=== PATIENT | female | born 1945 | race Caucasian/White ===

== ENCOUNTER 2017-01-30 14:42 | Observation (INO) ==
--- NOTE | 2017-01-30 17:29 | Emergency Department Note ---
Disposition Clinical Impression: Tremor Depression Qualifiers: Depression Type: unspecified Qualified Code(s): F32.9 - Major depressive disorder, single episode, unspecified Disposition: Admitted As Inpatient Condition: Fair Referrals: NONE,PCP [Primary Care Provider] - Forms: ED Satisfaction Letter Time of Disposition: 19:44 General Adult HPI - General Chief complaint: ED Psychiatric Symptoms Stated complaint: depressed, anxitey Time Seen by Provider: 01/30/17 17:20 Source: patient Mode of arrival: ambulatory Limitations: no limitations Nursing Notes Reviewed: Yes Vital Signs Reviewed: Yes - History of Present Illness HPI Narrative: 71-year-old with history of depression being treated with depression medications who comes in with stating that the medications are not working. Patient also has seen neurology and apparently they feel that she may have Parkinson's. The patient does have a tremor that is gotten worse. However the patient states she's never had been told that there is an absolute that she has Parkinson's. Pt Subjective Complaint: Tremor with worsening depression. Onset (ago): day(s) Pain Scale: 0 - Related Data Home Medications Medication Instructions Recorded Confirmed Carbidopa/Levodopa 25/100 [Sinemet 1 each PO 0800,1200,1600 01/30/17 01/30/17 25/100] Rosuvastatin [Crestor] 20 mg PO HS 01/30/17 01/30/17 Vortioxetine Hydrobromide 10 mg PO DAILY 01/30/17 01/30/17 [Trintellix] diazePAM [Valium] 5 mg PO QID 01/30/17 01/30/17 Allergies Allergy/AdvReac Type Severity Reaction Status Date / Time No Known Allergies Allergy Verified 01/30/17 19:54 All systems ED: reviewed and negative except as stated. Constitutional: Denies: fever, chills, weakness, weight change Eyes: Denies: eye pain, eye discharge, vision change ENT ED: Denies: ear pain, throat pain, dental pain, hearing loss, epistaxis, congestion, dysphagia Cardiovascular: Denies: chest pain, palpitations, dyspnea on exertion, edema, syncope Respiratory: Denies: cough, dyspnea, wheezes, hemoptysis, stridor Gastrointestinal: Denies: abdominal pain, nausea, vomiting, diarrhea, constipation, hematemesis, melena, hematochezia Genitourinary: Denies: dysuria, frequency, hematuria, discharge Musculoskeletal: Denies: back pain, neck pain, arthralgia, myalgia Integumentary: Denies: rash, abrasion, lesions Neurological: Reports: other (Worsening tremor). Denies: headache, weakness, numbness, paresthesias, confusion, abnormal gait, vertigo Psychiatric: Reports: anxiety, depression. Denies: suicidal thoughts, homicidal thoughts, auditory hallucinations, visual hallucinations Endocrine: Denies: fatigue Hematological/Lymphatic: Denies: easy bleeding, easy bruising Allergic/Immunologic: Denies: facial swelling, urticaria Past Medical History - Past Medical History Medical history: Reports: no medical history Psychiatric history: Reports: anxiety, depression - Social History Smoking Status: Never smoker Smokeless Tobacco Status: No Alcohol use: Reports: none Drug use: Reports: none Physical Exam - General Limitations: no limitations General appearance: alert, in no apparent distress - Head Head exam: atraumatic, normocephalic, normal inspection - Eye Eye exam: Present: normal appearance, PERRL, EOMI - ENT ENT exam: normal exam, normal oropharynx, mucous membranes moist - Neck Neck exam: Present: normal inspection, full ROM, trachea midline - Chest Chest inspection: Present: normal inspection, symmetric chest wall rise - Respiratory Respiratory exam: Present: normal lung sounds bilaterally - Cardiovascular Cardiovascular exam: Present: regular rate, normal rhythm, normal heart sounds - Abdominal Exam Abdominal exam: Present: soft, Non-Tender. Absent: tenderness, distention, guarding, rebound, rigidity - Extremities Exam Extremities exam: Present: normal inspection, full ROM. Absent: tenderness, pedal edema - Expanded Lower Extremity Exam Neurovascular/Tendon exam: Present: other (6 to cycle tremor present. Seems to be worse with intention.) Gait: not tested/not observed - Back Exam Back exam: Present: normal inspection, full ROM. Absent: tenderness - Neurological Exam Neurological exam: Present: alert, oriented X3 - Psychiatric Psychiatric exam: Present: depressed - Skin Skin exam: Present: warm, dry, intact, normal color Course - Reevaluation(s) Reevaluation #1: 71-year-old female with a history of depression is been on antidepressants states that depression is getting worse although she is not suicidal. She also has a tremor of is worsened to the point where there is difficulty with her eating and ambulating. Patient has been evaluated by both psychiatry and neurology and the question is whether this is medication induced versus a primary diagnosis of Parkinson's. Worsen significantly we'll go ahead and admit. Time: 19:45 - Consultations Consultation #1: Discussed with Dr. Sanchez, med effect vs Parkinsons. Time: 19:36 Consultation #2: Discussed with Dr. Gutiérrez, will see in consult. Time: 19:44 Consultation #3: Discussed with Dr. Santos, admit Time: 20:15 Vital Signs Temperature 98.8 F 01/30/17 14:57 Pulse Rate 95 01/30/17 14:57 Respiratory Rate 18 01/30/17 14:57 Blood Pressure 135/84 01/30/17 14:57 O2 Sat by Pulse Oximetry 95 01/30/17 14:57 Temperature 98.8 F 01/30/17 14:57 Pulse Rate 95 01/30/17 14:57 Respiratory Rate 18 01/30/17 14:57 Blood Pressure 135/84 01/30/17 14:57 O2 Sat by Pulse Oximetry 95 01/30/17 14:57 Oxygen Delivery Oxygen Delivery Room Air Medical Decision Making - Lab Data Lab results reviewed: Yes I reviewed the patient's lab results. Result diagrams: 01/30/17 18:38 01/30/17 17:45 Lab Results 01/30/17 01/30/17 01/30/17 Range/Units 17:45 17:45 18:11 WBC (4.3-11.1) K/mcL RBC (3.82-4.97) M/mcL Hgb (11.5-15.4) g/dL Hct (35.3-44.9) % MCV (83.0-100.0) fL MCH (28.0-33.3) pg MCHC (31.6-35.5) g/dL RDW (11.5-14.5) % Plt Count (140-400) K/mcL MPV (9.4-12.4) fL Immature Gran % (0-4) % Seg Neutrophils % % Lymphocytes % % Monocytes % % Eosinophils % % Basophils % % Neutrophils # (1.6-8.9) K/mcL Lymphocytes # (0.6-4.6) K/mcL Monocytes # (0.0-1.3) K/mcL Eosinophils # (0.0-0.6) K/mcL Basophils # (0.0-0.2) K/mcL Immature Plt Fraction (1.1-6.1) % Sodium 139 (136-145) mEq/L Potassium 4.2 (3.5-4.5) mEq/L Chloride 105 (98-109) mEq/L Carbon Dioxide 22 (19-29) mEq/L BUN 9 (7-20) mg/dL Creatinine 1.35 H (0.57-1.11) mg/dL Est GFR ( Amer) 47 L (> 60) Est GFR (Non-Af Amer) 38 L (> 60) BUN/Creatinine Ratio 7 (6-26) Glucose 115 H (70-99) mg/dL Calculated Osmolality 288 (280-300) Calcium 9.9 (8.6-10.8) mg/dL Total Bilirubin 0.9 (0.2-1.2) mg/dL Direct Bilirubin 0.4 (0.0-0.5) mg/dL Indirect Bilirubin 0.5 (0.0-1.2) mg/dL AST 36 H (5-34) Units/L ALT 8 (0-55) Units/L Alkaline Phosphatase 94 (38-126) Units/L Serum Total Protein 7.7 (6.0-8.3) g/dL Albumin 4.4 (3.5-5.0) g/dL Globulin 3.3 (2.4-3.5) g/dL Albumin/Globulin Ratio 1.3 (1.1-2.2) TSH 1.197 (0.350-4.840) mcIU/mL Urine Color Yellow (Yellow) Urine Clarity Clear (Clear) Urine pH 6.0 (5.0-8.0) pH Units Ur Specific [place] 1.008 L (1.010-1.025) Urine Protein Negative (Neg-Trace) mg/dL Urine Glucose (UA) Normal (Normal) mg/dL Urine Ketones Trace H (Negative) mg/dL Urine Blood Negative (Negative) Urine Nitrite Negative (Negative) Urine Bilirubin Negative (Negative) Urine Urobilinogen Normal (Normal) mg/dL Ur Leukocyte Esterase Moderate H (Negative) Urine Microscopic RBC 0-3 (0-3) per hpf Urine Microscopic WBC 5-15 H (0-3) per hpf Ur Squamous Epith Cells Many H (None-Few) per lpf Urine Bacteria None Seen (None-Few) per hpf Hyaline Casts None Seen (None-Few) per lpf Salicylates < 5.0 L (15-30) mg/dL Urine Opiates Screen (Dhhelo=852) ng/mL Acetaminophen < 1.0 L (10-30) mcg/mL Ur Barbiturates Screen (Jwkybu=473) ng/mL Ur Phencyclidine Scrn (Cutoff=25) ng/mL Ur Amphetamines Screen (Pcwuvl=8918) ng/mL U Benzodiazepines Scrn (Hksmly=576) ng/mL Urine Cocaine Screen (Cutoff= 300) ng/mL U Marijuana (THC) Screen (Cutoff = 50) ng/mL Ethyl Alcohol < 10 (0-10) mg/dL 01/30/17 01/30/17 Range/Units 18:11 18:38 WBC 7.3 (4.3-11.1) K/mcL RBC 4.87 (3.82-4.97) M/mcL Hgb 15.0 (11.5-15.4) g/dL Hct 43.1 (35.3-44.9) % MCV 88.5 (83.0-100.0) fL MCH 30.8 (28.0-33.3) pg MCHC 34.8 (31.6-35.5) g/dL RDW 12.5 (11.5-14.5) % Plt Count 192 (140-400) K/mcL MPV 11.2 (9.4-12.4) fL Immature Gran % 0.3 (0-4) % Seg Neutrophils % 69.5 % Lymphocytes % 21.8 % Monocytes % 7.9 % Eosinophils % 0.1 % Basophils % 0.4 % Neutrophils # 5.1 (1.6-8.9) K/mcL Lymphocytes # 1.6 (0.6-4.6) K/mcL Monocytes # 0.6 (0.0-1.3) K/mcL Eosinophils # 0.0 (0.0-0.6) K/mcL Basophils # 0.0 (0.0-0.2) K/mcL Immature Plt Fraction 7.2 H (1.1-6.1) % Sodium (136-145) mEq/L Potassium (3.5-4.5) mEq/L Chloride (98-109) mEq/L Carbon Dioxide (19-29) mEq/L BUN (7-20) mg/dL Creatinine (0.57-1.11) mg/dL Est GFR ( Amer) (> 60) Est GFR (Non-Af Amer) (> 60) BUN/Creatinine Ratio (6-26) Glucose (70-99) mg/dL Calculated Osmolality (280-300) Calcium (8.6-10.8) mg/dL Total Bilirubin (0.2-1.2) mg/dL Direct Bilirubin (0.0-0.5) mg/dL Indirect Bilirubin (0.0-1.2) mg/dL AST (5-34) Units/L ALT (0-55) Units/L Alkaline Phosphatase (38-126) Units/L Serum Total Protein (6.0-8.3) g/dL Albumin (3.5-5.0) g/dL Globulin (2.4-3.5) g/dL Albumin/Globulin Ratio (1.1-2.2) TSH (0.350-4.840) mcIU/mL Urine Color (Yellow) Urine Clarity (Clear) Urine pH (5.0-8.0) pH Units Ur Specific [place] (1.010-1.025) Urine Protein (Neg-Trace) mg/dL Urine Glucose (UA) (Normal) mg/dL Urine Ketones (Negative) mg/dL Urine Blood (Negative) Urine Nitrite (Negative) Urine Bilirubin (Negative) Urine Urobilinogen (Normal) mg/dL Ur Leukocyte Esterase (Negative) Urine Microscopic RBC (0-3) per hpf Urine Microscopic WBC (0-3) per hpf Ur Squamous Epith Cells (None-Few) per lpf Urine Bacteria (None-Few) per hpf Hyaline Casts (None-Few) per lpf Salicylates (15-30) mg/dL Urine Opiates Screen Negative (Smdoaw=530) ng/mL Acetaminophen (10-30) mcg/mL Ur Barbiturates Screen Negative (Umrbkh=903) ng/mL Ur Phencyclidine Scrn Negative (Cutoff=25) ng/mL Ur Amphetamines Screen Negative (Zpbnsk=0772) ng/mL U Benzodiazepines Scrn Positive H (Euvlzy=477) ng/mL Urine Cocaine Screen Negative (Cutoff= 300) ng/mL U Marijuana (THC) Screen Negative (Cutoff = 50) ng/mL Ethyl Alcohol (0-10) mg/dL - Radiology Data Radiology results reviewed: Yes I reviewed the patient's radiology results. Chest X-Ray 01/30/17 17:31 IMPRESSION: No radiographic evidence of acute cardiopulmonary disease. Left basal atelectasis and/or scarring. D/ / Elliott Smallwood MD / Elliott Smallwood MD Interpreting Provider: Elliott Smallwood MD Head CT 01/30/17 17:31 IMPRESSION: No acute intracranial abnormality. Mild parenchymal volume loss. Mild chronic microvascular disease. D/ / Luis Miguel Garza MD / Luis Miguel Garza MD Interpreting Provider: Luis Miguel Garza MD - EKG Data EKG #1 EKG attestation: Yes I reviewed and interpreted this EKG. EKG shows normal: sinus rhythm Rate: normal Rhythm: NSR Interpretation: no acute changes
[2017-01-30 18:15] LABS: BUN/Creatinine Ratio 7 (6-26); Blood Urea Nitrogen 9 mg/dL (7-20); Calcium 9.9 mg/dL (8.6-10.8); Carbon Dioxide 22 mEq/L (19-29); Chloride 105 mEq/L (98-109); Glucose 115 mg/dL (70-99); Osmolality,Calculated 288 (280-300); Potassium 4.2 mEq/L (3.5-4.5); Sodium 139 mEq/L (136-145); eGFR For African Americans 47 (> 60); eGFR For Non-African Americans 38 (> 60)
[2017-01-30 18:16] LABS: Acetaminophen < 1.0 mcg/mL (10-30); Ethanol < 10 mg/dL (0-10); Salicylate < 5.0 mg/dL (15-30)
[2017-01-30 18:17] LABS: Albumin 4.4 g/dL (3.5-5.0); Albumin/Globulin Ratio 1.3 (1.1-2.2); Bilirubin,Direct 0.4 mg/dL (0.0-0.5); Bilirubin,Indirect 0.5 mg/dL (0.0-1.2); Bilirubin,Total 0.9 mg/dL (0.2-1.2); Globulin 3.3 g/dL (2.4-3.5); Total Protein 7.7 g/dL (6.0-8.3)
[2017-01-30 18:38] LABS: Thyroid Stimulating Hormone 1.197 mcIU/mL (0.350-4.840)
[2017-01-30 18:39] LABS: Bilirubin,Urine Negative (Negative); Blood,Urine Negative (Negative); Clarity,Urine Clear (Clear); Color,Urine Yellow (Yellow); Glucose,Urine (UA) Normal (Normal); Ketones,Urine Trace mg/dL (Negative); Leukocyte Esterase,Urine Moderate (Negative); Nitrite,Urine Negative (Negative); Protein,Urine Negative (Neg-Trace); Specific Gravity,Urine 1.008 (1.010-1.025); Urobilinogen,Urine Normal (Normal)
[2017-01-30 18:41] LABS: Bacteria,Urine None Seen per hpf (None-Few); Hyaline Casts,Urine None Seen per lpf (None-Few); RBC,Urine 0-3 per hpf (0-3); Squamous Epithelial Cell,Urine Many per lpf (None-Few)
[2017-01-30 18:44] LABS: Amphetamine Screen,Urine Negative ng/mL (Cutoff=1000); Barbiturate Screen,Urine Negative ng/mL (Cutoff=200); Benzodiazepines Screen,Urine Positive ng/mL (Cutoff=200); Cannabinoid Screen,Urine Negative ng/mL (Cutoff = 50); Cocaine Screen,Urine Negative ng/mL (Cutoff= 300); Opiate Screen,Urine Negative ng/mL (Cutoff=300); Phencyclidine Screen,Urine Negative ng/mL (Cutoff=25)
[2017-01-30 19:02] LABS: Basophils % 0.4 %; Eosinophils % 0.1 %; Hematocrit 43.1 % (35.3-44.9); Immature Granulocytes % 0.3 % (0-4); Immature Platelets 7.2 % (1.1-6.1); Lymphocytes # 1.6 K/mcL (0.6-4.6); Lymphocytes % 21.8 %; Mean Corpuscular HGB Conc 34.8 g/dL (31.6-35.5); Mean Corpuscular Hemoglobin 30.8 pg (28.0-33.3); Mean Corpuscular Volume 88.5 fL (83.0-100.0); Mean Platelet Volume 11.2 fL (9.4-12.4); Monocytes # 0.6 K/mcL (0.0-1.3); Monocytes % 7.9 %; Neutrophils # 5.1 K/mcL (1.6-8.9); Platelet Count 192 K/mcL (140-400); Red Blood Count 4.87 M/mcL (3.82-4.97); Red Cell Distribution Width 12.5 % (11.5-14.5); Segmented Neutrophils % 69.5 %
[2017-01-30] MEDS ORDERED: *HR* LORazepam 1 MG TABLET PO ONE (23:04)
--- NOTE | 2017-01-31 02:43 | Internal Med History&Physical ---
Date of Encounter: 01/31/17 Time of Encounter: 02:39 Assessment and Plan (1) Tremor Current visit: Yes Status: Acute Suspected the patient would benefit from starting in anticholinergic medication. Will consult neurology. Check thyroid functions. Questionable UTI she has pus cells in urine however simple is also contaminated. Will check urine culture. No otherwise evident infectious etiology Internal Medicine - H&P: HPI Chief complaint: tremors History of present illness: Ms. Johnson is a 71 year old female with history of depression, CKD stage 3 and parkinsonism for which she was started approximately 3 weeks ago on siinemet and recently on Valium presents to the emergency room today with main complain of increased tremors. Patient has not noticed improvement with Parkinson's medications that she is on. She was started about 5 days ago on Valium to help improve the tremors however she has not noticed any improvement. She denies any focal weakness. She denies any fever chills cough expectoration. No otherwise new medications. She is compliant with her Parkinson's medications. She does not take any stimulant medications, inhalers or nebulizer treatments. Past Med Surg Social Fam HX - Past Medical History Medical history: no medical history Psychiatric history: anxiety, depression - Social History Smoking Status: Never smoker Smokeless Tobacco Status: No Alcohol use: none Drug use: none - Family History Mother Living Status: Cause of : in child Internal Medicine - H&P: Meds Carbidopa/Levodopa 25/100 [Sinemet 25/100] 1 each PO 0800,1200,1600 01/30/17 [ History] Rosuvastatin [Crestor] 20 mg PO HS 01/30/17 [History] Vortioxetine Hydrobromide [Trintellix] 10 mg PO DAILY 01/30/17 [History] diazePAM [Valium] 5 mg PO QID 01/30/17 [History] 3 Allergy/AdvReac Type Severity Reaction Status Date / Time No Known Allergies Allergy Verified 01/30/17 19:54 All Systems PM: A 10-system review of systems was performed and is negative for pertinent findings except as documented above in the HPI. Review of systems: 10 point review of systems is negative except for HPI - Constitutional Vitals: Temp Pulse Resp BP Pulse Ox 97.9 F 77 16 175/89 93 01/30/17 23:29 01/30/17 23:29 01/30/17 23:29 01/30/17 23:29 01/30/17 23:29 Exam: Gen.: patient is alert oriented times 3 not in distress. Cardiac: normal S1 S2 no additional sounds or murmurs chest: fair air entry. no active wheezing. No crackles or bronchial breathing. abdomen: soft nontender nondistended normal bowel sounds neuro: no focal deficit. generalized tremors. Internal Med - H&P Results - Labs CBC & Chem 7: 01/30/17 18:38 01/30/17 17:45
[2017-01-31] MEDS ORDERED: 0.9 % Sodium Chloride 1,000 ML IVC SCH (02:45)
[2017-01-31 05:13] LABS: Calcium 9.5 mg/dL (8.6-10.8); Magnesium 1.9 mg/dL (1.6-2.6); Potassium 3.8 mEq/L (3.5-4.5)
[2017-01-31 05:37] LABS: Thyroid Stimulating Hormone 1.914 mcIU/mL (0.350-4.840)
[2017-01-31] MEDS ORDERED: *HR* Heparin 5,000 UNIT/ML VIAL SQ SCH (06:00)
[2017-01-31] MEDS: diazePAM 5 MG TABLET PO SCH ×2 (08:19→12:45)
[2017-01-31] MEDS: Carbidopa/Levodopa 25/100 TABLET PO SCH ×2 (08:21→12:45)
[2017-01-31] MEDS ORDERED: Famotidine 20 MG TABLET PO SCH (09:00)
--- NOTE | 2017-01-31 09:19 | Event Note ---
Date of Encounter: 01/31/17
--- NOTE | 2017-01-31 09:58 | Neurology - Consult Note ---
<Russell Moreno - Last Filed: 01/31/17 10:14> Date of Encounter: 01/31/17 Time of Encounter: 09:15 Assessment and Plan (1) Tremor Current Visit: Yes Status: Acute Patient has history of drug-induced parkinsonism is currently under the care of Dr. Gutiérrez. She had been taking Sinemet previously and her dosage had been increased at her last appointment with Dr. Gutiérrez on 01/10/17. She reports he has had no improvement in her symptoms since this time. She reports now she has had increased depression and episodes of worsening tremor for the past 7-10 days. No significant localizing abnormality seen in neurologic examination. No rigiditiy noted in physical exam. No abnormalities seen in imaging. History of Present Illness Chief complaint: Increased tremors and depression HPI: Ms. Johnson is a 71 year old female with past medical history of depression, anxiety, hypertension, chronic kidney disease, drug-induced parkinsonism, and remote history of melanoma presents to [place] yesterday due to worsening of depression and tremors. At baseline patient has a fine, head/neck tremor with mild involvement of bilateral hands. She is seen by Dr. Gutiérrez as an outpatient to help address her continued tremors. She last saw Dr. Gutiérrez on 01/10/17 and her dosage of Sinemet was increased at that time. She reports that the last 7- 10 days she has been having increased depression and "heavy shaking." One is about the increased tremor since she has been having, she describes them as being brief episodes in which her tremors worsens markedly. She states involves her head and her arms typically states it limits her function certain that time, including her ability to eat or walk. She states at baseline he does not have problems with his functions. Past Med Surg Social Fam HX - Past Medical History Medical history: no medical history Psychiatric history: anxiety, depression - Social History Smoking Status: Never smoker Smokeless Tobacco Status: No Alcohol use: none Drug use: none - Family History Mother Living Status: Cause of : in child Medications and Allergies Carbidopa/Levodopa 25/100 [Sinemet 25/100] 1 each PO 0800,1200,1600 01/30/17 [ History] Rosuvastatin [Crestor] 20 mg PO HS 01/30/17 [History] diazePAM [Valium] 5 mg PO QID 01/30/17 [History] Ciprofloxacin [Cipro] 500 mg PO BID #8 tablet 01/31/17 [Rx] Vortioxetine Hydrobromide [Trintellix] 20 mg PO DAILY 30 Days tablet 01/31/17 [ Rx] 3 Allergy/AdvReac Type Severity Reaction Status Date / Time No Known Allergies Allergy Verified 01/30/17 19:54 - Constitutional Constitutional ROS IM: no chills, no fever(s), no headache(s), no weakness - Nose, Mouth, Throat Nose, mouth and throat: no dizziness, no neck pain - Cardiovascular Cardiovascular ROS IM: no chest pain, no palpitations - Respiratory Respiratory IM: no cough, no dyspnea - Gastrointestinal Gastrointestinal: no abdominal pain Physical Examination - Vital Signs Vital Signs: Initial Vital Signs Temp Pulse Resp BP Pulse Ox 98.8 F 95 18 135/84 95 01/30/17 14:57 01/30/17 14:57 01/30/17 14:57 01/30/17 14:57 01/30/17 14:57 - Exam Exam: General: Cooperative, pleasant, no acute distress, alert and oriented 3, answers questions appropriately, motion slow HEENT: Normocephalic, atraumatic, neck supple, trachea midline, Conjunctiva pink , sclera anicteric, EOMI, PERRL, oral mucosa moist, no orophargeal erythema or exudates Respiratory: No accessory muscle usage, clear to auscultation bilaterally, no wheezes/rhonchi/rales appreciated Cardiovascular: Regular rate and rhythm, S1 and S2 present, no murmurs/rubs/ gallops/clicks appreciated Extremities: No calf tenderness, noncyanotic, mild non-pitted pedal edema appreciated, warm, lower extremity pulses palpable and symmetrical Neurological: Alert and oriented 3, no facial droop, no focal deficits, flat affect, cranial nerves II through XII grossly intact bilaterally, rapid alternating movements smooth with slightly slow herrera, finger to nose smooth and accurate, sensation to gross touch intact in upper and lower extremities bilaterally, strength 5/5 in upper and lower extremities bilaterally, DTRs 1/4 in Achilles, patellar, brachioradialis bilaterally, resting head and neck tremor with very slight hand tremor bilaterally, no rigidity on exam Results - Laboratory Findings CBC and BMP: 01/30/17 18:38 01/31/17 04:12 Abnormal lab findings: Abnormal lab results Immature Plt Fraction 7.2 % (1.1-6.1) H 01/30/17 18:38 Creatinine 1.29 mg/dL (0.57-1.11) H 01/31/17 04:12 Est GFR ( Amer) 49 (> 60) L 01/31/17 04:12 Est GFR (Non-Af Amer) 41 (> 60) L 01/31/17 04:12 Glucose 112 mg/dL (70-99) H 01/31/17 04:12 AST 36 Units/L (5-34) H 01/30/17 17:45 Ur Specific [place] 1.008 (1.010-1.025) L 01/30/17 18:11 Urine Ketones Trace mg/dL (Negative) H 01/30/17 18:11 Ur Leukocyte Esterase Moderate (Negative) H 01/30/17 18:11 Urine Microscopic WBC 5-15 per hpf (0-3) H 01/30/17 18:11 Ur Squamous Epith Cells Many per lpf (None-Few) H 01/30/17 18:11 Salicylates < 5.0 mg/dL (15-30) L 01/30/17 17:45 Acetaminophen < 1.0 mcg/mL (10-30) L 01/30/17 17:45 U Benzodiazepines Scrn Positive ng/mL (Idjhwu=325) H 01/30/17 18:11 Consult Discharge Plan - Plan Instructions: Influenza Virus Vaccine (Injection), Urinary Tract Infection in Women (DC), Depression (DC), Anxiety (DC) Additional Instructions: Follow up with primary care physician in 7 days. Follow up with Neurology as needed. Complete 4 days of Ciprofloxacin. Increase dose of Trintellix to 20 mg daily Referrals: Akshat Gutiérrez DO [Partnered Physician] - 03/13/17 12:00 pm Scotty Carrillo DO [Partnered Physician] - 02/01/17 3:00 pm (You will be seeing Erica PATTON. Thank you!) Prescriptions: Ciprofloxacin [Cipro] 500 mg PO BID #8 tablet Vortioxetine Hydrobromide [Trintellix] 20 mg PO DAILY 30 Days tablet <Akshat Gutiérrez - Last Filed: 01/31/17 17:09> Date of Encounter: 01/31/17 Time of Encounter: 17:06 Assessment and Plan (1) Tremor Current Visit: Yes Status: Acute Above-noted. However in addition I would like to add that I believe that anxiety has played a significant role in the exacerbation of her tremors resulting in this admission. She may be discharged discretion. I will follow up with her in my office at the next scheduled visit. History of Present Illness HPI: Chart reviewed, patient seen and examined independently. Case was discussed with Dr. Moreno. This patient is known to me and I have previously seen her with a suspicion of drug-induced Parkinson's. However she informs me that she was under great deal of stress when she experienced this exacerbation of her tremors. She states that about 2 weeks or so ago her son-in-law lost his job, and then a few days ago the daughter fell down the stairs and had to be sent up to [facility] for more testing. However she feels that she is back to her baseline level of tremor now. All Systems: A 10-system review of systems was performed and is negative for pertinent findings except as documented above in the HPI. Physical Examination - Vital Signs Vital Signs: Initial Vital Signs Temp Pulse Resp BP Pulse Ox 98.8 F 95 18 135/84 95 01/30/17 14:57 01/30/17 14:57 01/30/17 14:57 01/30/17 14:57 01/30/17 14:57 - Exam Exam: Neurologic exam is performed independently. I agree with Dr. Moreno's exam as stated above. In addition I agree it was a very slight resting head tremor along with slight intention tremor of the arms when extended in front of her. She has normal strength bulk and tone otherwise. Results - Laboratory Findings CBC and BMP: 01/30/17 18:38 01/31/17 04:12 Abnormal lab findings: Abnormal lab results Immature Plt Fraction 7.2 % (1.1-6.1) H 01/30/17 18:38 Creatinine 1.29 mg/dL (0.57-1.11) H 01/31/17 04:12 Est GFR ( Amer) 49 (> 60) L 01/31/17 04:12 Est GFR (Non-Af Amer) 41 (> 60) L 01/31/17 04:12 Glucose 112 mg/dL (70-99) H 01/31/17 04:12 AST 36 Units/L (5-34) H 01/30/17 17:45 Ur Specific [place] 1.008 (1.010-1.025) L 01/30/17 18:11 Urine Ketones Trace mg/dL (Negative) H 01/30/17 18:11 Ur Leukocyte Esterase Moderate (Negative) H 01/30/17 18:11 Urine Microscopic WBC 5-15 per hpf (0-3) H 01/30/17 18:11 Ur Squamous Epith Cells Many per lpf (None-Few) H 01/30/17 18:11 Salicylates < 5.0 mg/dL (15-30) L 01/30/17 17:45 Acetaminophen < 1.0 mcg/mL (10-30) L 01/30/17 17:45 U Benzodiazepines Scrn Positive ng/mL (Lcwcyl=742) H 01/30/17 18:11
--- NOTE | 2017-01-31 12:38 | Electrocardiograph Report ---
[place] [id number] Test Date: 2017-01-30 Pat Name: Juana Johnson Department: 102 Room: 3B64 Gender: F Professor Of Genetics: Ekp : 1945 Requested By: Jefferson Lang Order Number: [id number] Reading MD: Angeli Delarosa Measurements Intervals Lafe Rate: 81 P: 28 OH: 153 QRS: 8 QRSD: 79 T: 5 QT: 367 QTc: 405 Interpretive Statements SINUS RHYTHM POSSIBLE LEFT ATRIAL ENLARGEMENT [-0.1mV P WAVE IN V1/V2] LOW QRS VOLTAGE IN PRECORDIAL LEADS [QRS DEFLECTION < 1.0 mV IN CHEST LEADS] POSSIBLE ANTERIOR MYOCARDIAL INFARCTION [30 ms Q WAVE IN V3/V4, OR R < 0.2 mV IN V4], PROBABLY OLD Electronically Signed On 01-31-2017 12:36:43 EDT by Angeli Delarosa
--- NOTE | 2017-01-31 13:27 | Consult Note ---
Date of Encounter: 01/31/17 Time of Encounter: 12:00 Assessment & Recommendation (1) Depression Current visit: Yes Status: Acute Assessment & Recommendation: Patient reporting increasing depression related to worsening tremor. Would recommend increase of Trintellix to 20mg. No need for inpatient psych stablization right now. Patient will call counseling center in one week with an update. Qualifiers: Depression Type: major depressive disorder Major depression recurrence: recurrent Active/Remission status: currently active Major depression episode severity: moderate Qualified Code(s): F33.1 - Major depressive disorder, recurrent, moderate (2) Anxiety Current visit: Yes Status: Acute Assessment & Recommendation: Continue valium for now. May adjust after patient has been on this for longer. Increase in tremor happened prior to this med change. Encourage positive coping skills. History of Present Illness Patient: known to practice within the last 3 years Requesting Physician: Matthew Martin Reason for consult: Depression History of present illness: Ms. Johnson is a 71 year old female with a history of depression and anxiety as well as drug-induced parkinsonism who presented to the hospital with worsening tremor as well as increasing depression. Patient was seen by this provider and started on Valium which was not picked up until Monday of last week. She does not notice much difference from her previous benzodiazepine. She continues to feel depressed and reports that this is because of how much she shakes. Patient states that she feels like she is "shaking from within." She denies any suicidal ideation. She reports difficulty sleeping at times. Patient's is at bedside and is concerned. Both patient and want to understand what this tremor has been caused by. Patient states it has worsened over the last 7-10 days. She denies auditory or visual hallucinations. Denies memory issues. Recently started on Trintellix earlier this month and has not noted much benefit from this either. CC: Matthew Martin Past Med Surg Social Fam HX - Past Medical History Medical history: no medical history - Past Psychiatric History Psychiatric history: Reports: anxiety, depression Past psychiatric history details: Patient has a long-standing history of depression. She started to have a tremor while on Abilify and he was initially thought that Abilify may have induced some Parkinson's like symptoms. No history of inpatient admissions. No history of suicide attempts. Family psychiatric history: No Family History of Suicide: None - Social History Smoking Status: Never smoker Smokeless Tobacco Status: No Alcohol use: none Drug use: none Current living situation: Home, With Family Activity Level: Independent ambulation - Family History Mother Living Status: Cause of : in child Medications & Allergies Carbidopa/Levodopa 25/100 [Sinemet 25/100] 1 each PO 0800,1200,1600 01/30/17 [ History] Rosuvastatin [Crestor] 20 mg PO HS 01/30/17 [History] Vortioxetine Hydrobromide [Trintellix] 10 mg PO DAILY 01/30/17 [History] diazePAM [Valium] 5 mg PO QID 01/30/17 [History] 3 Allergy/AdvReac Type Severity Reaction Status Date / Time No Known Allergies Allergy Verified 01/30/17 19:54 Review of Systems Constitutional: Denies: fever, chills, weakness, weight change Eyes: Denies: eye pain, vision change Ears, Nose, Throat: Denies: ear pain, throat pain, dental pain, hearing loss, congestion Cardiovascular: Denies: chest pain, palpitations, dyspnea on exertion Respiratory: Denies: cough, dyspnea, wheezes Gastrointestinal: Denies: abdominal pain, nausea, vomiting, diarrhea, constipation Genitourinary male: Denies: urgency, dysuria, frequency, genital lesions Genitourinary female: Denies: urgency, dysuria, frequency, abnormal menses, dyspareunia Musculoskeletal: Denies: joint swelling, joint pain Integumentary: Denies: rash, lesions, pruritus Neurological: Reports: other ( tremor) Psychiatric: Reports: depression, anxiety, abnormal sleep pattern, anhedonia, difficulty concentrating. Denies: suicidal ideation, change in appetite, auditory hallucinations, visual hallucinations Endocrine: Denies: fatigue, heat or cold intolerance Hematologic/Lymphatic: Denies: easy bruising, lymphadenopathy Allergic/Immunologic: Denies: urticaria, itchy eyes Mental Status Exam Patient orientation: Yes Person, Yes Time, Yes Place Patient appearance: Appropriate Behavior: tearful Psychomotor activity: Increased Eye contact: Maintains Eye Contact Mood description: Depressed, Anxious Affect description: congruent with mood, tearful, dysphoric Speech pattern: Slowed Speech volume: Soft/Quiet Thought process: Intact, Logical Thought content: No Suicidal ideation, No Homicidal ideation Perceptual disturbances: No Auditory hallucinations, No Visual hallucinations Attention span: Capable of Focused Attention Memory description: Grossly Intact Patient reliability: Reliable Historian Intelligence estimate: Average Judgment: Fair Insight: Partial Results - Vital Signs Vital signs: Temp Pulse Resp BP Pulse Ox 98.3 F 79 16 142/82 95 01/31/17 11:04 01/31/17 11:04 01/31/17 11:04 01/31/17 11:04 01/31/17 11:04 - Labs Labs: Laboratory Last Values WBC 7.3 K/mcL (4.3-11.1) 01/30/17 18:38 RBC 4.87 M/mcL (3.82-4.97) 01/30/17 18:38 Hgb 15.0 g/dL (11.5-15.4) 01/30/17 18:38 Hct 43.1 % (35.3-44.9) 01/30/17 18:38 MCV 88.5 fL (83.0-100.0) 01/30/17 18:38 MCH 30.8 pg (28.0-33.3) 01/30/17 18:38 MCHC 34.8 g/dL (31.6-35.5) 01/30/17 18:38 RDW 12.5 % (11.5-14.5) 01/30/17 18:38 Plt Count 192 K/mcL (140-400) 01/30/17 18:38 MPV 11.2 fL (9.4-12.4) 01/30/17 18:38 Immature Gran % 0.3 % (0-4) 01/30/17 18:38 Seg Neutrophils % 69.5 % 01/30/17 18:38 Lymphocytes % 21.8 % 01/30/17 18:38 Monocytes % 7.9 % 01/30/17 18:38 Eosinophils % 0.1 % 01/30/17 18:38 Basophils % 0.4 % 01/30/17 18:38 Neutrophils # 5.1 K/mcL (1.6-8.9) 01/30/17 18:38 Lymphocytes # 1.6 K/mcL (0.6-4.6) 01/30/17 18:38 Monocytes # 0.6 K/mcL (0.0-1.3) 01/30/17 18:38 Eosinophils # 0.0 K/mcL (0.0-0.6) 01/30/17 18:38 Basophils # 0.0 K/mcL (0.0-0.2) 01/30/17 18:38 Immature Plt Fraction 7.2 % (1.1-6.1) H 01/30/17 18:38 Sodium 139 mEq/L (136-145) 01/31/17 04:12 Potassium 3.8 mEq/L (3.5-4.5) 01/31/17 04:12 Chloride 105 mEq/L (98-109) 01/31/17 04:12 Carbon Dioxide 25 mEq/L (19-29) 01/31/17 04:12 BUN 9 mg/dL (7-20) 01/31/17 04:12 Creatinine 1.29 mg/dL (0.57-1.11) H 01/31/17 04:12 Est GFR ( Amer) 49 (> 60) L 01/31/17 04:12 Est GFR (Non-Af Amer) 41 (> 60) L 01/31/17 04:12 BUN/Creatinine Ratio 7 (6-26) 01/31/17 04:12 Glucose 112 mg/dL (70-99) H 01/31/17 04:12 Calculated Osmolality 287 (280-300) 01/31/17 04:12 Calcium 9.5 mg/dL (8.6-10.8) 01/31/17 04:12 Magnesium 1.9 mg/dL (1.6-2.6) 01/31/17 04:12 Total Bilirubin 0.9 mg/dL (0.2-1.2) 01/30/17 17:45 Direct Bilirubin 0.4 mg/dL (0.0-0.5) 01/30/17 17:45 Indirect Bilirubin 0.5 mg/dL (0.0-1.2) 01/30/17 17:45 AST 36 Units/L (5-34) H 01/30/17 17:45 ALT 8 Units/L (0-55) 01/30/17 17:45 Alkaline Phosphatase 94 Units/L (38-126) 01/30/17 17:45 Serum Total Protein 7.7 g/dL (6.0-8.3) 01/30/17 17:45 Albumin 4.4 g/dL (3.5-5.0) 01/30/17 17:45 Globulin 3.3 g/dL (2.4-3.5) 01/30/17 17:45 Albumin/Globulin Ratio 1.3 (1.1-2.2) 01/30/17 17:45 TSH 1.914 mcIU/mL (0.350-4.840) 01/31/17 04:12 Free T4 1.12 ng/dl (0.70-1.48) 01/31/17 04:12 Urine Color Yellow (Yellow) 01/30/17 18:11 Urine Clarity Clear (Clear) 01/30/17 18:11 Urine pH 6.0 pH Units (5.0-8.0) 01/30/17 18:11 Ur Specific [place] 1.008 (1.010-1.025) L 01/30/17 18:11 Urine Protein Negative mg/dL (Neg-Trace) 01/30/17 18:11 Urine Glucose (UA) Normal mg/dL (Normal) 01/30/17 18:11 Urine Ketones Trace mg/dL (Negative) H 01/30/17 18:11 Urine Blood Negative (Negative) 01/30/17 18:11 Urine Nitrite Negative (Negative) 01/30/17 18:11 Urine Bilirubin Negative (Negative) 01/30/17 18:11 Urine Urobilinogen Normal mg/dL (Normal) 01/30/17 18:11 Ur Leukocyte Esterase Moderate (Negative) H 01/30/17 18:11 Urine Microscopic RBC 0-3 per hpf (0-3) 01/30/17 18:11 Urine Microscopic WBC 5-15 per hpf (0-3) H 01/30/17 18:11 Ur Squamous Epith Cells Many per lpf (None-Few) H 01/30/17 18:11 Urine Bacteria None Seen per hpf (None-Few) 01/30/17 18:11 Hyaline Casts None Seen per lpf (None-Few) 01/30/17 18:11 Salicylates < 5.0 mg/dL (15-30) L 01/30/17 17:45 Urine Opiates Screen Negative ng/mL (Nsdtgf=453) 01/30/17 18:11 Acetaminophen < 1.0 mcg/mL (10-30) L 01/30/17 17:45 Ur Barbiturates Screen Negative ng/mL (Zfattt=574) 01/30/17 18:11 Ur Phencyclidine Scrn Negative ng/mL (Cutoff=25) 01/30/17 18:11 Ur Amphetamines Screen Negative ng/mL (Nybqrz=4591) 01/30/17 18:11 U Benzodiazepines Scrn Positive ng/mL (Kqyitp=220) H 01/30/17 18:11 Urine Cocaine Screen Negative ng/mL (Cutoff= 300) 01/30/17 18:11 U Marijuana (THC) Screen Negative ng/mL (Cutoff = 50) 01/30/17 18:11 Ethyl Alcohol < 10 mg/dL (0-10) 01/30/17 17:45 Consult Discharge Plan - Plan Referrals: NONE,PCP [Primary Care Provider] -
[2017-01-31 15:36] VITALS: BP 147/88
--- NOTE | 2017-01-31 16:12 | Discharge Summary ---
Date of Encounter: 01/31/17 Time of Encounter: 16:09 - Discharge Diagnosis (1) Tremor Priority: Primary Status: Acute Comments: history of drug-induced parkinsonism (2) Depression Priority: Secondary Status: Acute Qualifiers: Depression Type: unspecified Qualified Code(s): F32.9 - Major depressive disorder, single episode, unspecified (3) Depression Priority: Secondary Status: Acute Qualifiers: Depression Type: major depressive disorder Major depression recurrence: recurrent Active/Remission status: currently active Major depression episode severity: moderate Qualified Code(s): F33.1 - Major depressive disorder, recurrent, moderate (4) Anxiety Priority: Secondary Status: Acute (5) UTI (urinary tract infection) Priority: Secondary Status: Acute Qualifiers: Urinary tract infection type: acute cystitis Hematuria presence: without hematuria Qualified Code(s): N30.00 - Acute cystitis without hematuria - Discharge Medications Prescriptions: Ciprofloxacin [Cipro] 500 mg PO BID #8 tablet Vortioxetine Hydrobromide [Trintellix] 20 mg PO DAILY 30 Days tablet Home Medications: Carbidopa/Levodopa 25/100 [Sinemet 25/100] 1 each PO 0800,1200,1600 01/30/17 [ History] Rosuvastatin [Crestor] 20 mg PO HS 01/30/17 [History] diazePAM [Valium] 5 mg PO QID 01/30/17 [History] Ciprofloxacin [Cipro] 500 mg PO BID #8 tablet 01/31/17 [Rx] Vortioxetine Hydrobromide [Trintellix] 20 mg PO DAILY 30 Days tablet 01/31/17 [ Rx] Allergies/Adverse Reactions: 3 Allergy/AdvReac Type Severity Reaction Status Date / Time No Known Allergies Allergy Verified 01/30/17 19:54 Date of admission: 01/30/17 20:30 Primary care physician: PCP NONE Consults: 01/31/17 02:31 Consult to Occupational Therapy [CONS] Routine Comment: Evaluate, develop and implement POC Reason for Consult: weakness Consult to Physical Therapy [CONS] Routine Comment: Evaluate, develop and implement POC Reason for Consult: weakness - Patient Status Disposition: Home, Self-Care Condition: Good Overall status at discharge: patient is back to baseline - Discharge Instructions Follow Up With: NONE,PCP [Primary Care Provider] - Additional Instructions: Follow up with primary care physician in 7 days. Follow up with Neurology as needed. Complete 4 days of Ciprofloxacin. Increase dose of Trintellix to 20 mg daily - Diet and Activity Activity: increase activity as tolerated Diet: low fat, low cholesterol Hospital course: Ms. Johnson is a 71 year old female with past medical history of depression, anxiety, hypertension, chronic kidney disease 3, drug-induced parkinsonism, and remote history of melanoma presented to [facility] yesterday due to worsening of depression and tremors. At baseline patient has a fine, head/neck tremor with mild involvement of bilateral hands. She is seen by Dr. Gutiérrez as an outpatient to help address her continued tremors. She last saw Dr. Gutiérrez on 01/10/17 and her dosage of Sinemet was increased at that time. She reported that the last 7- 10 days she has been having increased depression and "heavy shaking." One is about the increased tremor since she has been having, she described them as being brief episodes in which her tremors worsens markedly. She stated involves her head and her arms typically states it limits her function certain that time, including her ability to eat or walk. Was found to have a UTI and was started on Ciprofloxacin. Was evaluated by [facility] and her dose of Trintellix was increased to 20 mg daily. Was evaluated by Dr Gutiérrez from neurology and no change to her dose of sinemet was recommended. Stable to be discharged. - Time Spent with Patient Total time spent providing and/or coordinating discharge services: Greater than 30 minutes (40 min) - Constitutional Vitals: Temp Pulse Resp BP Pulse Ox 98.0 F 80 16 147/88 95 01/31/17 15:29 01/31/17 15:29 01/31/17 15:29 01/31/17 15:29 01/31/17 15:29 General appearance: Present: A&O X 3 Exam: minimal essential tremors - Head Head exam: Present: atraumatic, normocephalic - Eye Eye exam: Present: PERRL, conjuntiva pink, sclera anicteric Pupils: Present: PERRL - Neck Neck exam general surgery: Present: supple, trachea midline. Absent: lymphadenopathy - Respiratory Respiratory exam: Present: CTAB. Absent: accessory muscle use, rales, rhonchi, wheezes - Cardiovascular Cardiovascular exam: Present: RRR, +S1, +S2. Absent: diastolic murmur, gallop, rubs, systolic murmur - GI/Abdominal GI/Abdominal exam: Present: normal bowel sounds, soft, no peritoneal signs. Absent: distended, tenderness - Extremities Exam Extremities exam: Present: warm, radial pulses palpable and symmetrical. Absent : calf tenderness, cyanotic, pedal edema - Neurological Exam Neurological exam: Present: CN II-XII intact, oriented X3, no focal deficits. Absent: pronater drift, facial droop, speech deficit - Skin Skin exam: Present: dry, intact
== END 2017-01-31 17:50 | disposition home or self-care (01) ==
LOC: EMEROO 14:42 → 3BNU 14:42 → SUATTDRO 20:30 → 3BNU 21:03
PROVIDERS: ADMIT Hospitalist; ATTEND Internal Medicine